=== PATIENT | male | born 1950 | race Caucasian/White ===

== ENCOUNTER 2024-11-26 15:55 | Emergency (ER) | payer MEDICARE ==
[~2024-11-26] VITALS: Ht 160 cm; Wt 73.0 kg
[~2024-11-26 15:55] MED LIST: LEVO-65 MT; TAMS-11 MT; TAMS-11 PO
[2024-11-26 16:16] VITALS: BP 163/99; PULSE 136; RESP 16; TEMP 97.9; O2SAT 99
[2024-11-26] MEDS: ACETAMINOPHEN 325MG TABLET PO ONE (18:10)
[2024-11-26 18:34] LABS: CLARITY URINE TURBID (CLEAR); COLOR URINE YELLOW (YELLOW); GLUCOSE URINE NEGATIVE (NEGATIVE); KETONES URINE NEGATIVE (NEGATIVE); LEUKOCYTE ESTERASE URINE 3+ (NEGATIVE); NITRITE URINE NEGATIVE (NEGATIVE); OCCULT BLOOD URINE 2+ (NEGATIVE); PH URINE >=9.0 (4.5-8.0); PROTEIN URINE 2+ (NEGATIVE); SPECIFIC GRAVITY URINE 1.015 (1.005-1.030); UROBILINOGEN URINE 0.2 E.U./dL (0.2-1.0)
[2024-11-26 18:43] LABS: BACTERIA URINE 2+; SQUAMOUS EPITHELIAL CELL URINE 1+ /lpf (RARE/1+); TRIPLE PHOSPHATE CRYSTAL URINE 1+ /lpf
[2024-11-26] MEDS ORDERED: SULF1TAB48 MT (19:18)
[2024-11-26] MEDS ORDERED: SULFAMETHOXAZOLE/TRIMETHOPRIM 400/80MG TAB PO ONE (19:30)
[2024-11-26 20:36] LABS: HEMATOCRIT. 34.7 % (42.0-52.0); HEMOGLOBIN. 11.5 g/dL (14.0-18.0); MEAN CORPUSCULAR HEMOGLOBIN 28.1 pg (28.0-32.0); MEAN CORPUSCULAR HGB CONC 33.1 g/dL (31.0-37.0); MEAN CORPUSCULAR VOLUME 84.9 fL (80.0-94.0); MEAN PLATELET VOLUME 6.6 fl (7.4-10.4); PLATELET 285 x1000/uL (130-400); RED BLOOD CELL COUNT 4.09 mill/uL (4.7-6.1); RED CELL DISTRIBUTION WIDTH 14.3 % (11.6-14.6); WHITE BLOOD COUNT 13.9 x1000/uL (4.5-11.0)
[2024-11-26 20:37] LABS: DIFFERENTIAL COMMENT 1
[2024-11-26 20:40] LABS: CHLORIDE 102 mEq/L (98-107); POTASSIUM 4.8 mEq/L (3.5-5.1); SODIUM 132 mEq/L (136-145)
[2024-11-26 20:41] LABS: CARBON DIOXIDE 17 mEq/L (21-32)
[2024-11-26 20:42] LABS: CALCIUM 9.7 mg/dL (8.7-10.4)
[2024-11-26 20:46] LABS: CREATININE 1.3 mg/dL (0.6-1.3); GLUCOSE 188 mg/dL (70-105)
[2024-11-26 20:47] LABS: PLATELET ESTIMATE NORMAL; UREA NITROGEN BLOOD 21 mg/dL (9-23)
[2024-11-26 20:48] LABS: ALANINE AMINOTRANSFERASE 10 IU/L (10-49); ALBUMIN 4.7 g/dL (3.2-4.8); ASPARTATE AMINOTRANSFERASE 18 IU/L (<34)
[2024-11-26 20:49] LABS: BILIRUBIN TOTAL 0.6 mg/dL (0.1-1.0); PROTEIN TOTAL 7.5 g/dL (6.0-8.3)
[2024-11-26] MEDS: SULFAMETHOXAZOLE/TRIMETHOPRIM 800/160MG TABLET PO NR (20:54)
== END 2024-11-26 23:21 | disposition home or self-care (01) ==
LOC: ER 15:55
DX: N39.0 Urinary tract infection, site not specified (principal); Z46.6 Encounter for fitting and adjustment of urinary device
CPT/HCPCS: 36415; 51701; 51702; 80053; 81003; 85025; 99283